=== PATIENT | female | born 1960 | race Caucasian/White ===

== ENCOUNTER → 2018-02-01 | Outpatient (CLI) | payer BC, OTHER ==
[~2018-02-01] MED LIST: ALPR.25T; DICY20TA57 PO; ESTR0.455; MULT1TAB63
--- NOTE | 2018-02-02 13:30 | Diagnostic Imaging Report ---
EXAMINATION: Digital mammogram bilateral screening with 3D tomosynthesis. INDICATION: Screening. COMPARISON: This study was compared to the prior exam of 12/16/2010. At this time, there are no current complaints. The current study was also evaluated with a Computer Aided Detection (CAD) system. FINDINGS: The fibroglandular tissue in both breasts is heterogeneously dense. This does limit the sensitivity of this exam. Overall, there does not appear to have been any significant change when compared to the prior study. No primary or secondary sign of malignancy is noted. 3D tomographic images fail to show any sign of malignancy. IMPRESSION: 1. There is no evidence of malignancy. 2. The patient should have her annual bilateral screening mammogram on schedule in January of 2019. ACR BI-RADS Category 1: Negative. Result letter will be mailed to the patient. Note: At least 10% of breast cancer is not imaged by mammography. Dictated by: Dictated on workstation # [id number]
== END ==
LOC: RAD 15:34
PROVIDERS: ATTEND Internal Medicine
DX: Z12.31 Encounter for screening mammogram for malignant neoplasm of breast (principal)
CPT/HCPCS: 77067

== ENCOUNTER 2022-06-14 11:21 | Emergency (ER) | payer BC ==
[~2022-06-14] VITALS: Ht 152 cm; Wt 58.9 kg
[2022-06-14] MEDS ORDERED: methylPREDNISolone 125 MG (Solu-MEDROL) VIAL IV STA (11:48)
--- NOTE | 2022-06-14 11:48 | ED Syncope ---
General Chief Complaint: Dizziness/Syncope Stated Complaint: CHILLS,FEVER,GONZALEZ,PASSED OUT Nursing Triage Note: PT PRESENTS TO ED VIA POV FROM [facility] FOR COMPLAINTS OF SYNCOPAL EPISODE IN HER CAR JUST CVICU RN WHEN THEY WERE WAITING AT [facility] FOR THEIR COVID RESULTS. PT REPORTS PT HAD ONE EPISODE OF EMESIS AFTER SHE CAME TO. PT STATES SHE STARTED FEELING ILL ON Thursday06/13/22, WITH DIZZINESS, LIGHTHEADEDNESS, SWEATS, AND FEVER. History of Present Illness Date Seen by Provider: Jun 14, 2022 Time Seen by Provider: 11:42 Initial Comments Patient went to [facility] today to have a COVID test done. After she got swabbed at the clinic she had a syncopal episode in the car just prior to arrival. Vomiting after she arouse from syncopal episode. C/O flu like symptoms that started yesterday that included dizziness, lightheaded, sweats and fever. Denies exposure to COVID that she is aware of. Is vaccinated. Has been taking over the counter medications with mild improvement of symptoms. Timing/Prior Episodes: Single Episode Today Symptoms Prior to Episode: Blurred Vision, Diaphoresis, Injury, Nausea Precipitating Factors: Other (COVID test) Loss of Consciousness: No Loss of Consciousness, Brief (Seconds) Current Symptoms: Back to Normal, Dizziness, Lightheadedness, Nausea Allergies and Home Medications Allergies Uncoded Allergies: NKA (Allergy, Mild, 06/23/08) PENICILLIN (Allergy, Unknown, RASH, ITCHING, BREATHING DIFFICULTY, 06/14/22) Patient Home Medication List Home Medication List Reviewed: Yes Alprazolam (Xanax) 0.25 Mg Tab, (Reported) Entered as Reported by: VIELKA BEDOLLA on 06/23/08 0837 Dicyclomine Hcl (Bentyl) 20 Mg Tablet, 1 EACH PO QID PRN Prescribed by: TANESHA SYLVESTER on 09/26/10 0025 Estrogens,Conjugated (Premarin) 0.45 Mg Tablet, (Reported) Entered as Reported by: BRIANDA OVERTON on 09/25/10 2314 Multivitamins (Vitamins (Multi-Vit)) 1 Ea Tablet, (Reported) Entered as Reported by: CARISSA PALM on 06/28/08 1613 Review of Systems Constitutional: chills, dizziness, fever, malaise, weakness (generalized) EENTM: no symptoms reported Respiratory: cough; No short of breath, No stridor, No wheezing Cardiovascular: No chest pain, No edema, No palpitations Gastrointestinal: No abdominal pain, No constipation, No diarrhea, No nausea, No vomiting Musculoskeletal: No back pain; muscle pain Skin: No pruritus, No rash All Other Systems Reviewed Negative Unless Noted: Yes Past Zerhmmm-Cbwgxq-Tvsobd Hx Patient Social History Tobacco Use?: Yes Tobacco type used: Cigarettes Smoking Status: Current Everyday Smoker Substance use?: No Alcohol Use?: No Pt feels they are or have been: No Past Medical History Surgery/Hospitalization HX: pmh: htn sx: r ankle, hyst Reproductive Disorders: Yes Family Medical History Reviewed Nursing Family Hx Physical Exam Vital Signs Vital Signs - First Documented 06/14/22 11:34 Temp 37.1 Pulse 79 Resp 24 B/P (MAP) 143/80 (101) Pulse Ox 94 O2 Delivery Room Air Capillary Refill : Less Than 3 Seconds Height, Weight, BMI Height: '" Weight: lbs. oz. kg; 25.00 BMI Method:Stated General Appearance: No Apparent Distress, WD/WN HEENT: PERRL/EOMI, TMs Normal, Normal ENT Inspection, Pharynx Normal Neck: Full Range of Motion, Normal Inspection, Non Tender, Supple Cardiovascular: Regular Rate, Rhythm, No Edema Respiratory: Chest Non Tender, Lungs Clear, Normal Breath Sounds, No Accessory Muscle Use, No Respiratory Distress Gastrointestinal: No Organomegaly, Non Tender, Soft Back: Normal Inspection Extremities: Normal Capillary Refill, Normal Inspection, Normal Range of Motion, Non Tender Neurologic/Psychiatric: Alert, Oriented x3, Normal Mood/Affect Cranial Nerves: Normal Hearing Skin: Normal Color, Warm/Dry Progress/Results/Core Measures Results/Orders Lab Results Laboratory Tests Test 06/14/22 11:37 Range/Units White Blood Count 7.7 4.3-11.0 10^3/uL Red Blood Count 5.06 3.80-5.11 10^6/uL Hemoglobin 14.6 11.5-16.0 g/dL Hematocrit 44 35-52 % Mean Corpuscular Volume 86 80-99 fL Mean Corpuscular Hemoglobin 29 25-34 pg Mean Corpuscular Hemoglobin Concent 34 32-36 g/dL Red Cell Distribution Width 13.4 10.0-14.5 % Platelet Count 212 130-400 10^3/uL Mean Platelet Volume 10.4 9.0-12.2 fL Immature Granulocyte % (Auto) 0 % Neutrophils (%) (Auto) 65 42-75 % Lymphocytes (%) (Auto) 19 12-44 % Monocytes (%) (Auto) 15 H 0-12 % Eosinophils (%) (Auto) 0 0-10 % Basophils (%) (Auto) 0 0-10 % Neutrophils # (Auto) 5.0 1.8-7.8 10^3/uL Lymphocytes # (Auto) 1.4 1.0-4.0 10^3/uL Monocytes # (Auto) 1.2 H 0.0-1.0 10^3/uL Eosinophils # (Auto) 0.0 0.0-0.3 10^3/uL Basophils # (Auto) 0.0 0.0-0.1 10^3/uL Immature Granulocyte # (Auto) 0.0 0.0-0.1 10^3/uL Prothrombin Time 14.0 12.2-14.7 SEC INR Comment 1.0 0.8-1.4 Activated Partial Thromboplast Time 31 24-35 SEC Fibrinogen 269 221-496 MG/DL Sodium Level 139 135-145 MMOL/L Potassium Level 3.5 L 3.6-5.0 MMOL/L Chloride Level 104 98-107 MMOL/L Carbon Dioxide Level 20 L 21-32 MMOL/L Anion Gap 15 H 5-14 MMOL/L Blood Urea Nitrogen 8 7-18 MG/DL Creatinine 0.82 0.60-1.30 MG/DL Estimat Glomerular Filtration Rate 81 BUN/Creatinine Ratio 10 Glucose Level 135 H 70-105 MG/DL Calcium Level 9.0 8.5-10.1 MG/DL Corrected Calcium 8.8 8.5-10.1 MG/DL Total Bilirubin 0.4 0.1-1.0 MG/DL Aspartate Amino Transf (AST/SGOT) 31 5-34 U/L Alanine Aminotransferase (ALT/SGPT) 24 0-55 U/L Alkaline Phosphatase 89 40-136 U/L Troponin I < 0.028 <0.028 NG/ML C-Reactive Protein High Sensitivity 0.93 H 0.00-0.50 MG/DL Total Protein 6.8 6.4-8.2 GM/DL Albumin 4.2 3.2-4.5 GM/DL Influenza Type A (RT-PCR) Not Detected Not Detecte Influenza Type B (RT-PCR) Not Detected Not Detecte SARS-CoV-2 RNA (RT-PCR) Detected H Not Detecte My Orders Orders - TALIA MCINTOSH APRN Chest 1 View, Ap/Pa Only (06/14/22 11:48) Rt Request For Service (06/14/22 11:48) Methylprednisolone Sod Succ (Solu-Medrol (06/14/22 11:48) Monitor-Rhythm Ecg Trace Only (06/14/22 11:48) Cbc With Automated Diff (06/14/22 11:48) Comprehensive Metabolic Panel (06/14/22 11:48) Hs C Reactive Protein (06/14/22 11:48) Troponin I [place] (06/14/22 11:48) Protime With Inr (06/14/22 11:48) Partial Thromboplastin Time (06/14/22 11:48) Fibrinogen (06/14/22 11:48) Ns Iv 1000 Ml (Sodium Chloride 0.9%) (06/14/22 12:00) Acetaminophen Tablet/Caplet (Tylenol T (06/14/22 12:00) Ondansetron Injection (Zofran Injectio (06/14/22 12:00) Albuterol Inhaler (Albuterol) (06/14/22 12:00) Covid 19 Inhouse Test (06/14/22 11:48) Influenza A And B By Pcr (06/14/22 11:48) Isolation Central Supply Req (06/14/22 11:48) Medications Given in ED Vital Signs/I&O 06/14/22 06/14/22 11:34 14:21 Temp 37.1 Pulse 79 90 Resp 24 16 B/P (MAP) 143/80 (101) 122/80 Pulse Ox 94 98 O2 Delivery Room Air Blood Pressure Mean: 101 Progress Progress Note : Progress Note Patient arrives to the department after syncopal episode after getting COVID swab. 1400: Spoke to patient and in regards to labs. Patient reports that she is feeling better at this time. COVID testing was positive. Home treatments discussed with patient and . asked if she can have the Paxlovid. Patient refused this medication. Reasons to return to the ER were discussed with patient and . Both verbalized understanding. Departure Impression Primary Impression: COVID-19 Disposition: 01 HOME, SELF-CARE Condition: Stable Departure-Patient Inst. Decision time for Depature: 14:03 Referrals: SHAINA GONZÁLES DO (PCP/Family) Primary Care Physician Patient Instructions: COVID-19 Overview Add. Discharge Instructions: 1. Home and rest. 2. Push fluids. 3. Alternate Tylenol/Ibuprofen as needed for pain or fever. 4. May continue over the counter medications as directed per package instructions. 5. Follow up with PCP as needed. 6. Return here if worse or concerns. All discharge instructions reviewed with patient and/or family. Voiced understanding. TALIA MCINTOSH FORM COVERER Jun 14, 2022 11:48
[2022-06-14 11:58] LABS: BASOPHILS % (AUTO) 0 % (0-10); EOSINOPHILS % (AUTO) 0 % (0-10); HEMATOCRIT 44 % (35-52); HEMOGLOBIN 14.6 g/dL (11.5-16.0); LYMPHOCYTES # (AUTO) 1.4 10^3/uL (1.0-4.0); LYMPHOCYTES % (AUTO) 19 % (12-44); MEAN CORPUSCULAR HEMOGLOBIN 29 pg (25-34); MEAN CORPUSCULAR HGB CONC 34 g/dL (32-36); MEAN CORPUSCULAR VOLUME 86 fL (80-99); MEAN PLATELET VOLUME 10.4 fL (9.0-12.2); MONOCYTES # (AUTO) 1.2 10^3/uL (0.0-1.0); MONOCYTES % (AUTO) 15 % (0-12); NEUTROPHILS % (AUTO) 65 % (42-75); PLATELET COUNT 212 10^3/uL (130-400); WHITE BLOOD COUNT 7.7 10^3/uL (4.3-11.0)
[2022-06-14] MEDS ORDERED: RT-ALBUTEROL HFA 8.5 GM INHALER IH PRN (12:00)
[2022-06-14] MEDS ORDERED: ONDANSETRON 4 MG/2 ML (SDV) Z0FRAN IV ONE (12:00)
[2022-06-14] MEDS ORDERED: ACETAMINOPHEN 325 MG TABLET PO ONE (12:00)
[2022-06-14] MEDS ORDERED: NS IV 1000 ML 1,000 ML IV SCH (12:00)
[2022-06-14 12:01] LABS: ALBUMIN 4.2 GM/DL (3.2-4.5); CHLORIDE 104 MMOL/L (98-107); POTASSIUM 3.5 MMOL/L (3.6-5.0); SODIUM 139 MMOL/L (135-145)
[2022-06-14 12:03] LABS: GLUCOSE 135 MG/DL (70-105)
[2022-06-14 12:04] LABS: TOTAL PROTEIN 6.8 GM/DL (6.4-8.2)
[2022-06-14 12:05] LABS: BILIRUBIN,TOTAL 0.4 MG/DL (0.1-1.0); CARBON DIOXIDE 20 MMOL/L (21-32)
[2022-06-14 12:07] LABS: ALKALINE PHOSPHATASE 89 U/L (40-136); CREATININE SERUM 0.82 MG/DL (0.60-1.30); GFR ESTIMATED 81
[2022-06-14 12:08] LABS: BUN/CREATININE RATIO 10
[2022-06-14 12:10] LABS: ALANINE AMINOTRANSFERASE 24 U/L (0-55)
--- NOTE | 2022-06-14 12:57 | Diagnostic Imaging Report ---
EXAM: CHEST 1 VIEW, AP/PA ONLY. INDICATION: Syncope. COMPARISON: None. FINDINGS: Normal heart size and central pulmonary vascularity. Lungs are clear. No pleural effusion or pneumothorax. No acute osseous findings. IMPRESSION: No acute cardiopulmonary findings. Dictated by: Dictated on workstation # [id number]
[2022-06-14 14:21] VITALS: BP 122/80
== END 2022-06-14 14:21 | disposition home or self-care (01) ==
LOC: EDUNIT# 11:21 → ER 11:24
DX: U07.1 COVID-19 (principal); F17.210 Nicotine dependence, cigarettes, uncomplicated
CPT/HCPCS: 36415; 71045; 80053; 84484; 85025; 85384; 85610; 85730; 86141; 87636; 93041